=== PATIENT | female | born 2000 | race African-American/Black ===

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

== ENCOUNTER 2019-03-14 11:50 | Emergency (ER) | payer MEDICAID ==
[~2019-03-14] VITALS: Ht 160 cm; Wt 49.4 kg
[2019-03-14 12:55] VITALS: BP 107/62
== END 2019-03-14 13:58 | disposition home or self-care (01) ==
LOC: ER 12:00
DX: Z34.01 Encounter for supervision of normal first pregnancy, first trimester (principal); Z91.040 Latex allergy status

== ENCOUNTER 2019-03-15 16:38 | Emergency (ER) | payer MEDICAID, OTHER ==
[~2019-03-15] VITALS: Ht 160 cm; Wt 49.4 kg
[2019-03-15 21:19] VITALS: BP 124/76
== END 2019-03-15 21:21 | disposition home or self-care (01) ==
LOC: ER 16:38
DX: O26.891 Other specified pregnancy related conditions, first trimester (principal); Z3A.01 Less than 8 weeks gestation of pregnancy
CPT/HCPCS: 36415; 84702